=== PATIENT | female | born 1965 | race Caucasian/White ===

== ENCOUNTER 2019-12-23 22:02 | Emergency (ER) | payer BC, OTHER ==
--- NOTE | 2019-12-23 22:06 | EDM.PDOC ---
ED HPI GENERAL MEDICAL PROBLEM - General Chief Complaint: Upper Extremity Injury/Pain Stated Complaint: L THUMB CRUSH INJUEY Time Seen by Provider: 12/23/19 22:05 Source of Information: Reports: Patient, Old Records ([facility] EMR. No paper hospital chart available.) History Limitations: Reports: No Limitations - History of Present Illness INITIAL COMMENTS - FREE TEXT/NARRATIVE: Patient was brought to the emergency room via transport vehicle from [facility] for evaluation of a Workmen's Compensation injury, which occurred this afternoon. The patient caught her left thumb in a break with 400 mg of ibuprofen taken at 1730 hrs. this afternoon. She was able to continue to perform her normal work duties. She has not injured this thumb in the past and is right-handed. No history of paresthesias, fall, neurological deficits, or any other complaints or injuries. The patient denies any chest pain/pressure, heart flutter, dizziness, orthostasis, orthopnea, diaphoresis, paresthesias, recent decreased exercise tolerance, or any other anginal-type symptoms. No recent history of abdominal pain, heartburn, nausea, diarrhea, melena, gross hematochezia, or any food intolerance, including fatty foods, etc.. The patient also denies any recent fever, cough, wheezing, dyspnea, etc... Onset: Today, Sudden Onset Date: 12/23/19 Onset Time: 16:45 Duration: Constant, Getting Worse Location: Reports: Upper Extremity, Left. 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 (As above) Left Finger-Thumb Pain Score (Numeric/FACES): 3 - Related Data Allergies Allergy/AdvReac Type Severity Reaction Status Date / Time No Known Allergies Allergy Verified 12/23/19 22:03 Home Meds: Home Meds Aspirin/Acetaminophen/Caffeine [Excedrin Extra Strength Caplet] 1 each PO DAILY PRN 12/23/19 [History] FLUoxetine HCl [Fluoxetine HCl] 20 mg PO DAILY 12/23/19 [History] Fluticasone Propionate 1 spray NASBOTH DAILY 12/23/19 [History] Levothyroxine [Synthroid] 50 mcg PO ACBREAKFAST 12/23/19 [History] lisinopriL [Lisinopril] 10 mg PO DAILY 12/23/19 [History] Past Medical History HEENT History: Reports: Allergic Rhinitis, Impaired Vision, Other (See Below) Other HEENT History: Patient wears glasses. 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 Full term without complications during pregnancies or deliveries. Musculoskeletal History: Reports: Arthritis, Back Pain, Chronic, Neck Pain, Chronic, Osteoarthritis. Denies: Fracture Neurological History: Reports: Headaches, Chronic, Migraines Psychiatric History: Reports: Anxiety, Depression Endocrine/Metabolic History: Reports: Diabetes, Type II, Obesity/BMI 30+. Denies: Diabetes, Gestational, Diabetes, Type I, Diabetes Mellitus, Type 3c, Hypothyroidism, IDDM - Past Imaging History Past Imaging History: Reports: Mammogram (Last on 12/18/2019.), Ultrasound (Renal, pelvic, and bladder ultrasound on 07/09/2018.) Social & Family History - Tobacco Use Tobacco Use Status *Q: Current Every Day Tobacco User Tobacco Use Within Last Twelve Months: No Years of Tobacco use: 30 Packs/Tins Daily: 0.5 Packs/Tins Daily Comment: Maximum use of 1.5 packs/day with patient starting smoking at age 24. 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 ED EXAM, GENERAL - Physical Exam Exam: See Below Exam Limited By: No Limitations General Appearance: Alert, WD/WN, No Apparent Distress Head: Atraumatic, Normocephalic Neck: Normal Inspection, Supple, Non-Tender, Full Range of Motion. No: Lymphadenopathy (L), Lymphadenopathy (R), Thyromegaly Respiratory/Chest: No Respiratory Distress, Lungs Clear, Normal Breath Sounds, No Accessory Muscle Use, Chest Non-Tender. No: Pleural Rub, Retractions Cardiovascular: Normal Peripheral Pulses, Regular Rate, Rhythm, No Gallop, No JVD, No Murmur, No Rub. No: No Edema (Dependent edema as below), Gallop/S3, Gallop/S4, Friction Rub Peripheral Pulses: 2+: Radial (L), Radial (R) GI/Abdominal: Normal Bowel Sounds, Soft, Non-Tender, No Organomegaly, No Distention, No Abnormal Bruit, No Mass, Pelvis Stable, Other (obese). No: Guarding (Female) Exam: Deferred Rectal (Female) Exam: Deferred Back Exam: Normal Inspection, Full Range of Motion. No: CVA Tenderness (L), CVA Tenderness (R), Muscle Spasm Extremities: Normal Range of Motion, Non-Tender, Normal Capillary Refill, Pedal Edema (Trace+1 bilateral pedal/pretibial edema), Other (Mild swelling with mo derate ecchymosis of the distal phalanx of the left thumb with no evidence of dislocation, crepitation, etc. Note mild subungual hematoma). No: Christiano's Sign Neurological: Alert, Oriented, CN II-XII Intact, Normal Cognition, Normal Gait, No Motor/Sensory Deficits Psychiatric: Normal Affect, Normal Mood Skin Exam: Warm, Dry, Intact, No Rash, Ecchymosis. No: Diaphoretic, Wound/Incision Lymphatic: No Adenopathy ED TRAUMA EXTREMITY PROCEDURES - Splinting Left Thumb Pre-Procedure NV Status: Normal Post-Procedure NV Status: Normal Splint Material: Aluminum-Foam (2 hole padded) Splint Design: Extensor (And flexor) Applied & Form Fitted By: Nurse Provider Post-Splint Application NV Check: NV Status Normal, Good Position Complications: No Course - Vital Signs Last Recorded V/S: Last Vital Signs Temp 36.8 C 12/23/19 22:05 Pulse 71 12/23/19 22:05 Resp 16 12/23/19 22:05 BP 113/88 12/23/19 22:05 Pulse Ox 99 12/23/19 22:05 Vital Signs - 24 hr 12/23/19 22:05 Temperature [ 36.8 C Oral] Pulse, 71 Peripheral [ Pulse Oximetry] Respiratory 16 Rate Blood Pressure 113/88 [Left Upper Arm ] O2 Sat by Pulse 99 Oximetry - Orders/Labs/Meds Orders: Active Orders 24 hr Category Date Time Status Fingers Thumb Lt FA [CR] Stat Exams 12/23/19 22:06 Ordered Durable Medical Equipment for Discharge [DME for Oth 12/23/19 22:35 Ordered Discharge] [COMM] Routine Obtain Past Medical Record [OM.PC] Routine Oth 12/23/19 22:06 Active Labs: None Meds: None - Radiology Interpretation Free Text/Narrative:: X-rays of the left thumb, complete, shows evidence of a nondisplaced mildly comminuted tuft fracture with no evidence of foreign body, angulation, etc. Departure - Departure Time of Disposition: 22:45 Disposition: Home, Self-Care 01 Clinical Impression: Tobacco abuse counseling Thumb fracture Qualifiers: Encounter type: initial encounter Fracture type: closed Phalanx: distal Fracture alignment: nondisplaced Laterality: left Qualified Code(s): S62.525A - Nondisplaced fracture of distal phalanx of left thumb, initial encounter for closed fracture Osteoarthritis Qualifiers: Osteoarthritis location: multiple joints Osteoarthritis type: primary Qualified Code(s): M89.49 - Other hypertrophic osteoarthropathy, multiple sites Hypertension Qualifiers: Hypertension type: essential hypertension Qualified Code(s): I10 - Essential (primary) hypertension - Discharge Information *PRESCRIPTION DRUG MONITORING PROGRAM REVIEWED*: Not Applicable *COPY OF PRESCRIPTION DRUG MONITORING REPORT IN PATIENT XENA: Not Applicable Instructions: Finger Fracture, Adult, [id number], Steps to Quit Smoking, Health Risks of Smoking Referrals: Doreen Carney PA-C [Primary Care Provider] - Forms: ED Department Discharge, ED Return to Work/School Form Additional Instructions: 1. Followup with your regular provider in 7 days as directed for reevaluation and repeat x-rays of the left thumb. Bring these discharge instructions with you to that visit. 2. Tylenol 650 mg by mouth every 4 hours and/or OTC ibuprofen 2-3 tabs by mouth every 6 hours with food as directed./needed. You may stagger these medications for 48-72 hours only, which essentially means that you are receiving a pain medication about every 2 hours. 3. Ice packs as needed/directed 4. Finger splint must be used at all times with exception of bathing and wound care until otherwise directed by your regular provider 5. Work excuse- See Form 6. 10 pound lifting restriction, etc. with the left hand as discussed until otherwise directed 7. Immediately after this visit verify that your cellular telephone's voicemail has been activated and is empty. Also verify that your home telephone's answering machine is operating properly and has space to receive messages. Note that it is sometimes necessary for us to be able to contact you at a later date to discuss your medical care. 8. Please remember that we are ALWAYS here for you and want to answer any questions you may have. Feel free to call the hospital any time and we call you back JOS. Sepsis Event Note (ED) - Focused Exam Vital Signs: Vital Signs Temp Pulse Resp BP Pulse Ox 12/23/19 22:05 36.8 C 71 16 113/88 99 - Problem List & Annotations (1) Thumb fracture SNOMED Code(s): 256301046 Code(s): S62.509A - FRACTURE OF UNSP PHALANX OF UNSP THUMB, INIT FOR CLOS FX Status: Acute Priority: High Current Visit: Yes Onset Date: 12/23/19 Annotation/Comment:: Symptomatic relief as per discharge instructions. Thumb splint applied as above. Close follow-up by regular provider. [place] and Workmen's Compensation forms were completed. Activity restrictions were discussed. Only minimal subungual hematoma with [place] hole not needed. Qualifiers: Encounter type: initial encounter Fracture type: closed Phalanx: distal Fracture alignment: nondisplaced Laterality: left Qualified Code(s): S62.525A - Nondisplaced fracture of distal phalanx of left thumb, initial encounter for closed fracture (2) Hypertension SNOMED Code(s): 66186970 Code(s): I10 - ESSENTIAL (PRIMARY) HYPERTENSION Status: Chronic Priority: Medium Current Visit: Yes Annotation/Comment:: Good control in the emergency room. Qualifiers: Hypertension type: essential hypertension Qualified Code(s): I10 - Essential (primary) hypertension (3) Osteoarthritis SNOMED Code(s): 688764665 Code(s): M19.90 - UNSPECIFIED OSTEOARTHRITIS, UNSPECIFIED SITE Status: Chronic Priority: Medium Current Visit: Yes Annotation/Comment:: Otherwise stable by history with no evidence of other injuries or complaints. Qualifiers: Osteoarthritis location: multiple joints Osteoarthritis type: primary Qualified Code(s): M89.49 - Other hypertrophic osteoarthropathy, multiple sites (4) Tobacco abuse counseling SNOMED Code(s): 479218543, 808397482, 294969130 Code(s): Z71.6 - TOBACCO ABUSE COUNSELING Status: Chronic Priority: Medium Current Visit: Yes Annotation/Comment:: Tobacco cessation strongly encouraged with tobacco cessation information provided. - Problem List Review Problem List Initiated/Reviewed/Updated: Yes - My Orders Last 24 Hours: My Active Orders 12/23/19 22:06 Fingers Thumb Lt FA [CR] Stat Obtain Past Medical Record [OM.PC] Routine 12/23/19 22:35 Durable Medical Equipment for Discharge [DME for Discharge] [COMM] Routine - Assessment/Plan Last 24 Hours: My Active Orders 12/23/19 22:06 Fingers Thumb Lt FA [CR] Stat Obtain Past Medical Record [OM.PC] Routine 12/23/19 22:35 Durable Medical Equipment for Discharge [DME for Discharge] [COMM] Routine Assessment:: As above Plan: As above. Extensive precautions were given to the patient, who is in agreement with the treatment plan. See Patient Instructions for further treatment and plan. NOTE: The patient was also advised to get her right-sided breast ultrasound JOS secondary to mild right upper quadrant breast abnormality at time of recent mammogram on 12/18/2019. The patient was already aware of this, however has not yet scheduled this ultrasound to this point.
== END 2019-12-23 22:42 | disposition home or self-care (01) ==
LOC: LL.ED 22:02
DX: S62.525A Nondisplaced fracture of distal phalanx of left thumb, initial encounter for closed fracture (principal); I10 Essential (primary) hypertension; M89.48 Other hypertrophic osteoarthropathy, other site; E11.9 Type 2 diabetes mellitus without complications; F41.9 Anxiety disorder, unspecified; F32.9 Major depressive disorder, single episode, unspecified; E03.9 Hypothyroidism, unspecified; E66.9 Obesity, unspecified; M19.90 Unspecified osteoarthritis, unspecified site; Z71.6 Tobacco abuse counseling; F17.210 Nicotine dependence, cigarettes, uncomplicated; Y99.0 Civilian activity done for income or pay; Z79.82 Long term (current) use of aspirin; Z79.899 Other long term (current) drug therapy; W23.0XXA Caught, crushed, jammed, or pinched between moving objects, initial encounter
CPT/HCPCS: 73140-FA; 99283